=== PATIENT | male | born 1955 | race Native Hawaiian/Other Pacific Islander ===

== ENCOUNTER 2017-06-17 08:14 | Day surgery (SDC) | payer MEDICAID ==
[2017-06-11 11:29] VITALS: BMI 22.7
[2017-06-17 08:35] VITALS: TEMP 97.6
[2017-06-17] MEDS ORDERED: Sodium Chloride 0.9% 1,000 ML IV SCH (09:30)
[2017-06-17] MEDS ORDERED: Propofol 10 mg/ml Inj (20 ML) ONE (09:32)
[2017-06-17] MEDS ORDERED: ePHEDrine 50 mg/ml Inj ONE (10:18)
[2017-06-17 10:40] VITALS: O2SAT 99
[2017-06-17 10:55] VITALS: PULSE 71; RESP 12
[2017-06-17 11:41] VITALS: BP 115/71
== END 2017-06-17 12:35 | disposition home or self-care (01) ==
LOC: ENDO 08:14
PROVIDERS: ATTEND Internal Medicine
DX: D12.0 Benign neoplasm of cecum (principal); D12.3 Benign neoplasm of transverse colon; K62.1 Rectal polyp; K63.5 Polyp of colon; K64.8 Other hemorrhoids
CPT/HCPCS: 45380; 45381; 45385; 88305; J2001; J2704; J7040

== ENCOUNTER 2018-05-21 22:20 | Emergency (ER) | payer MEDICAID ==
[2018-05-21 22:50] VITALS: TEMP 98.3
[2018-05-21 23:06] VITALS: BMI 22.1
--- NOTE | 2018-05-21 23:38 | ED PDOC ---
Arrival/HPI - General Chief Complaint: Abdominal Pain Time Seen by Provider: 05/21/18 23:07 Historian: Patient - History of Present Illness Narrative History of Present Illness (Text): 05/21/18 23:34 A 62 year old male, s/p hemorrhoid removal at [facility] 4 days ago, presents to the emergency department with a complaint of constipation. The patient states that the last time he had a bowel movement was 5 days ago. He states that he only took Miralax once with no relief of his symtpoms. He also reports that he was given anesthesia for the hemorrhoid removal procedure. The patient denies fevers, chills, headache, dizziness, chest pain, shortness of breath, dyspnea on exertion, cough, sore throat, abdominal pain, nausea, vomiting, diarrhea, back pain, neck pain, or any other complaints. Time/Duration: Other (4 days) Symptom Course: Unchanged Activities at Onset: Rest, Light Context: Home Past Medical History - Provider Review Nursing Documentation Reviewed: Yes - Infectious Disease Hx of Infectious Diseases: None - Cardiac Hx Cardiac Disorders: No - Pulmonary Hx Respiratory Disorders: No - Neurological Hx Neurological Disorder: No - HEENT Hx HEENT Disorder: No - Renal Hx Renal Disorder: No - Endocrine/Metabolic Hx Endocrine Disorders: No - Hematological/Oncological Hx Blood Disorders: No - Integumentary Hx Dermatological Disorder: No - Musculoskeletal/Rheumatological Hx Musculoskeletal Disorders: No - Gastrointestinal Hx Gastrointestinal Disorders: No - Genitourinary/Gynecological Hx Genitourinary Disorders: No - Psychiatric Hx Psychophysiologic Disorder: No Hx Substance Use: No - Anesthesia Hx Anesthesia Reactions: No Hx Malignant Hyperthermia: No - Suicidal Assessment Feels Threatened In Home Enviroment: No Family/Social History - Physician Review Nursing Documentation Reviewed: Yes Family/Social History: No Known Family HX Smoking Status: Light Smoker < 10 Cigarettes Daily Hx Alcohol Use: No Hx Substance Use: No Allergies/Home Meds Allergies/Adverse Reactions: Allergies No Known Allergies Allergy (Verified 05/21/18 23:06) Home Medications: Home Meds Medication Instructions Recorded Confirmed Cholecalciferol [Vitamin D] 1,000 iu PO QAM 06/11/17 06/17/17 Levothyroxine Sodium [Levoxyl] 75 mcg PO QAM 06/11/17 06/17/17 Sertraline HCl 100 mg PO QAM 06/11/17 06/17/17 Review of Systems - Physician Review All systems were reviewed & negative as marked: Yes - Review of Systems Constitutional: absent: Fevers ENT: absent: Sore Throat Respiratory: absent: SOB, Cough Cardiovascular: absent: Chest Pain, [place] Gastrointestinal: Constipation. absent: Abdominal Pain, Stool Changes, Nausea, Vomiting Musculoskeletal: absent: Back Pain, Neck Pain Neurological: absent: Headache, Dizziness Physical Exam Vital Signs Reviewed: Yes Vital Signs Temp Pulse Resp BP Pulse Ox 05/21/18 22:49 98.3 F 71 17 116/69 96 Temperature: Afebrile Blood Pressure: Normal Pulse: Regular Respiratory Rate: Normal Appearance: Positive for: Well-Appearing, Non-Toxic, Comfortable Pain Distress: None Mental Status: Positive for: Alert and Oriented X 3 - Systems Exam Head: Present: Atraumatic, Normocephalic Pupils: Present: PERRL Extroacular Muscles: Present: EOMI Conjunctiva: Present: Normal Mouth: Present: Moist Mucous Membranes Neck: Present: Normal Range of Motion Respiratory/Chest: Present: Clear to Auscultation, Good Air Exchange. No: Respiratory Distress, Accessory Muscle Use Cardiovascular: Present: Regular Rate and Rhythm, Normal S1, S2. No: Murmurs Abdomen: No: Tenderness, Distention, Peritoneal Signs Back: Present: Normal Inspection Upper Extremity: Present: Normal Inspection. No: Cyanosis, Edema Lower Extremity: Present: Normal Inspection. No: Edema Neurological: Present: GCS=15, CN II-XII Intact, Speech Normal Skin: Present: Warm, Dry, Normal Color. No: Rashes Psychiatric: Present: Alert, Oriented x 3, Normal Insight, Normal Concentration Medical Decision Making ED Course and Treatment: 05/21/18 23:40 Impression: A 62 year old male presents to the emergency department with a complaint of constipation s/p his hemorrhoid removal 4 days ago. Plan: -- Abdomen/ Pelvis CT -- Labs -- Reassess and disposition Progress Notes: 05/21/18 23:41: Case discussed in detail with cmo & president. 05/22/18 05:24 Ct w/ mild inflammation, in post surgical area, however also sigmoid. Will give cipro and flagyl for home. pt just started using laxatives today. Seen by cmo & president, clear for d/c home. CT SCAN OF THE ABDOMEN AND PELVIS WITH CONTRAST Electronically signed on May 22, 2018 5:02:44 AM EDT by: Shant Felder M.D., Certified by ABR, MSK, Neuroradiology Impression: Surgical changes of and rectal junction. Associated thickening and enhancement suggestive of mild inflammatory changes. Mild inflammatory thickening of the rectosigmoid junction. No perforation or abscess formation. Associated moderate constipation. Mild splenomegaly, benign incidental finding. Bilateral basilar atelectatic pulmonary changes. - Lab Interpretations I have reviewed the lab results: Yes - Scribe Statement The provider has reviewed the documentation as recorded by the Scribe Sonia Morris Provider Scribe Attestation: All medical record entries made by the Scribe were at my direction and personally dictated by me. I have reviewed the chart and agree that the record accurately reflects my personal performance of the history, physical exam, medical decision making, and the department course for this patient. I have also personally directed, reviewed, and agree with the discharge instructions and disposition. Disposition/Present on Arrival - Present on Arrival Any Indicators Present on Arrival: No History of DVT/PE: No History of Uncontrolled Diabetes: No Urinary Catheter: No History of Decub. Ulcer: No History Surgical Site Infection Following: None - Disposition Have Diagnosis and Disposition been Completed?: Yes Diagnosis: Colitis Disposition: HOME/ ROUTINE Disposition Time: 05:26 Patient Problems: Current Active Problems Problem Status Onset Colitis Acute Condition: GOOD Discharge Instructions (ExitCare): Microscopic Colitis Prescriptions: Ciprofloxacin [Cipro] 500 mg PO BID 10 Days #20 tab Metronidazole [Flagyl] 500 mg PO TID 10 Days #30 tablet Referrals: Chapincito Loomis MD [Staff Provider] - Follow up with primary Forms: [employer] (Bhutanese)
[2018-05-21] MEDS ORDERED: Sodium Chloride 0.9% 1,000 ML IV SCH (23:45)
[2018-05-22 00:29] LABS: BASO # 0.01 K/mm3 (0.0-2.0); BASO % 0.2 % (0.0-3.0); EOS # 0.1 (0.0-0.7); GRAN # 3.62 (1.4-6.5); GRAN % 73.9 % (50.0-68.0); HEMOGLOBIN 12.1 g/dL (14.0-18.0); LYMPH # 0.9 (1.2-3.4); LYMPH % 18.2 % (22.0-35.0); MEAN CELL VOLUME 86.6 fl (80.0-105.0); MEAN CORPUSCULAR HEMOGLOBIN 28.9 pg (25.0-35.0); MEAN CORPUSCULAR HGB CONC 33.3 g/dl (31.0-37.0); MEAN PLATELET VOLUME 9.8 fl (7.0-11.0); MONO # 0.3 (0.1-0.6); MONO % 5.7 % (1.0-6.0); RBC 4.19 10^6/uL (3.5-6.1); RED CELL DISTRIBUTION WIDTH 13.7 % (11.5-14.5); WHITE BLOOD COUNT 4.9 10^3/ul (4.5-11.0)
[2018-05-22] MEDS ORDERED: Iohexol 240 (50 ml) ONE (00:55)
[2018-05-22 01:04] LABS: BLOOD UREA NITROGEN 17 mg/dL (7-21); GFR NON-AFRICAN AMERICAN > 60
[2018-05-22 01:05] LABS: ALB/GLOB RATIO 1.4 (1.1-1.8); ALBUMIN 3.9 g/dL (3.0-4.8); ALT/SGPT 19 U/L (7-56); AST/SGOT 16 U/L (17-59); CALCIUM 8.9 mg/dL (8.4-10.5)
[2018-05-22 01:07] LABS: VENOUS BLOOD GAS BASE EXCESS 3.7 mmol/L (0.0-2.0); VENOUS BLOOD GAS PO2 50 mm/Hg (30-55); VENOUS BLOOD PH 7.39 (7.32-7.43)
[2018-05-22] MEDS ORDERED: Iohexol 350 MG/100 ML VIAL ONE (01:20)
--- NOTE | 2018-05-22 05:47 | CP.PCM.CON ---
History of Present Illness - History of Present Illness History of Present Illness: General Surgery Consult Note: Dr. Loomis 62M with hx of large internal hemorrhoids s/p hemorrhoidectomy done at [facility] [place] on 05/18/2018. Patient reports to [facility] ED with complaints of constipation. Patient reports he has not been able to have a bowel movement since date of surgery. He reports taking percocet at home to alleviate pain. However, patient admits he did not begin taking his stool softener until yesterday. He is passing flatus. Patient denies headaches/dizziness, fever/chills, chest pain/SOB, nausea/vomiting/diarrhea, dysuria, rectal pain. PMH: as stated above PSH: hemorrhoidectomy, appendectomy Fam Hx: non-contributory Allergies: NKDA Review of Systems - Review of Systems Review of Systems: 10 pt ROS unremarkable, except as stated in HPI Past Patient History - Infectious Disease Hx of Infectious Diseases: None - Past Social History Smoking Status: Light Smoker < 10 Cigarettes Daily - CARDIAC Hx Cardiac Disorders: No - PULMONARY Hx Respiratory Disorders: No - NEUROLOGICAL Hx Neurological Disorder: No - HEENT Hx HEENT Problems: No - RENAL Hx Chronic Kidney Disease: No - ENDOCRINE/METABOLIC Hx Endocrine Disorders: No - HEMATOLOGICAL/ONCOLOGICAL Hx Blood Disorders: No - INTEGUMENTARY Hx Dermatological Problems: No - MUSCULOSKELETAL/RHEUMATOLOGICAL Hx Musculoskeletal Disorders: No - GASTROINTESTINAL Hx Gastrointestinal Disorders: No - GENITOURINARY/GYNECOLOGICAL Hx Genitourinary Disorders: No - PSYCHIATRIC Hx Psychophysiologic Disorder: No Hx Substance Use: No - SURGICAL HISTORY Hx Surgeries: Yes - ANESTHESIA Hx Anesthesia Reactions: No Hx Malignant Hyperthermia: No Meds Home Medications: Home Medication List Medication Instructions Recorded Confirmed Type Ciprofloxacin [Cipro] 500 mg PO BID 10 Days #20 tab 05/22/18 Rx Metronidazole [Flagyl] 500 mg PO TID 10 Days #30 tablet 05/22/18 Rx Allergies/Adverse Reactions: Allergies Allergy/AdvReac Type Severity Reaction Status Date / Time No Known Allergies Allergy Verified 05/21/18 23:06 - Medications Medications: Current Medications Sodium Chloride (Sodium Chloride 0.9%) 1,000 mls @ 100 mls/hr IV .Q10H ROXANA Last Admin: 05/22/18 00:25 Dose: 100 mls/hr Physical Exam - Constitutional Appears: Non-toxic, No Acute Distress - Head Exam Head Exam: NORMOCEPHALIC - Eye Exam Eye Exam: EOMI, Normal appearance - ENT Exam ENT Exam: Mucous Membranes Moist - Respiratory Exam Respiratory Exam: NORMAL BREATHING PATTERN - Cardiovascular Exam Cardiovascular Exam: +S1, +S2 - GI/Abdominal Exam GI & Abdominal Exam: Soft. absent: Distended, Firm, Guarding, Rebound, Rigid, Tenderness - Rectal Exam Rectal Exam: absent: Fecal Impaction Additional comments: No fecal impaction +post operative edema No stenosis palpated rectum is patent No stool palpated in rectal vault No bleeding noted - Neurological Exam Neurological exam: Alert, Oriented x3 - Psychiatric Exam Psychiatric exam: Normal Mood - Skin Skin Exam: Dry, Intact, Warm Results - Vital Signs Recent Vital Signs: Last Vital Signs Temp 98.3 F 05/21/18 22:49 Pulse 71 05/21/18 22:49 Resp 17 05/21/18 22:49 BP 116/69 05/21/18 22:49 Pulse Ox 96 05/21/18 22:49 - Labs Result Diagrams: 05/22/18 00:00 05/22/18 00:00 Labs: Laboratory Results - last 24 hr 05/22/18 05/22/18 05/22/18 00:00 00:00 00:00 WBC 4.9 RBC 4.19 Hgb 12.1 L Hct 36.3 L MCV 86.6 MCH 28.9 MCHC 33.3 RDW 13.7 Plt Count 124 MPV 9.8 Gran % 73.9 H Lymph % (Auto) 18.2 L Grayson % (Auto) 5.7 Eos % (Auto) 2.0 Baso % (Auto) 0.2 Gran # 3.62 Lymph # (Auto) 0.9 L Grayson # (Auto) 0.3 Eos # (Auto) 0.1 Baso # (Auto) 0.01 pO2 50 VBG pH 7.39 VBG pCO2 49.0 VBG HCO3 29.7 H VBG Total CO2 31.2 H VBG O2 Sat (Calc) 89.4 H VBG Base Excess 3.7 H VBG Potassium 3.9 Sodium 139.0 140 Chloride 105.0 103 Glucose 121 H Lactate 1.3 FiO2 21.0 Potassium 3.8 Carbon Dioxide 28 Anion Gap 13 BUN 17 Creatinine 0.9 Est GFR ( Amer) > 60 Est GFR (Non-Af Amer) > 60 Random Glucose 120 H Calcium 8.9 Total Bilirubin 0.6 AST 16 L ALT 19 Alkaline Phosphatase 42 Total Protein 6.7 Albumin 3.9 Globulin 2.8 Albumin/Globulin Ratio 1.4 Venous Blood Potassium 3.9 Assessment & Plan - Assessment and Plan (Free Text) Assessment: 62M s/p hemorrhoidectomy POD 4 Plan: Based on appearance on CT hemorrhoidectomy likely done with PPH device Encouraged use of stool softeners especially while on narcotics C/w Sitz bath Encourage ambulation, hydration, fiber intake Recommends he follow up with surgeon who did hemorrhoidectomy No acute surgical intervention needed at this present time. Further recs per Dr. Vladislav Bassett PGY3
[2018-05-22 07:12] VITALS: BP 131/75; PULSE 72; RESP 18; O2SAT 100
[2018-05-22] MEDS ORDERED: Magnesium Hydroxide Susp 30 ml UD PO STA (07:23)
--- NOTE | 2018-05-22 09:14 | CT ---
Date of service: 05/22/2018 PROCEDURE: CT Abdomen and Pelvis with contrast HISTORY: 5d s/p hemrroid surgery- now w/ constipation COMPARISON: None. TECHNIQUE: Contrast dose: 100 cc of Omni 350 Radiation dose: Total exam DLP = 370 mGy-cm. This CT exam was performed using one or more of the following dose reduction techniques: Automated exposure control, adjustment of the mA and/or kV according to patient size, and/or use of iterative reconstruction technique. FINDINGS: LOWER THORAX: There is some linear scarring at the left lung base LIVER: Unremarkable. No gross lesion or ductal dilatation. GALLBLADDER AND BILE DUCTS: Unremarkable. PANCREAS: Unremarkable. No gross lesion or ductal dilatation. SPLEEN: Unremarkable. ADRENALS: Unremarkable. No mass. KIDNEYS AND URETERS: Unremarkable. No hydronephrosis. No solid mass. VASCULATURE: Unremarkable. No aortic aneurysm. BOWEL: A suture line is seen in the lower rectum. There is mural thickening in this region. This is consistent with a history of recent hemorrhoid surgery. There is no focal perforation or abscess. There is no obstruction. Mild constipation APPENDIX: Normal appendix. PERITONEUM: Unremarkable. No free fluid. No free air. LYMPH NODES: Unremarkable. No enlarged lymph nodes. BLADDER: Unremarkable. REPRODUCTIVE: Unremarkable. BONES: No acute fracture. OTHER FINDINGS: The report concurs with the preliminary report IMPRESSION: A suture line is seen in the lower rectum. There is mural thickening in this region. This is consistent with a history of recent hemorrhoid surgery. There is no focal perforation or abscess. There is no obstruction. Mild constipation
== END 2018-05-22 05:44 | disposition home or self-care (01) ==
LOC: ED 22:20
DX: K52.9 Noninfective gastroenteritis and colitis, unspecified (principal); F17.210 Nicotine dependence, cigarettes, uncomplicated
CPT/HCPCS: 74177; 80053; 82803; 85025; 99283; J7030; Q9966; Q9967